=== PATIENT | male | born 1995 | race African-American/Black ===

== ENCOUNTER 2019-05-04 22:51 | Emergency (ER) | payer SELFPAY ==
--- NOTE | 2019-05-05 00:21 | ED ---
Laceration/Wound HPI - HPI Summary HPI Summary: 24-year-old male presents with right pinky laceration today. He states he grabbed a wooden pole that was broken to swing at [employer] and ended up cutting his right hand. Is right-handed. His immunizations are up-to-date. Has no medical conditions. No numbness or tingling. Full range of motion of the finger. No foreign body in the wound. He is not actively bleeding. - History of Current Complaint Stated Complaint: CUT HAND OPEN PER PT Time Seen by Provider: 05/04/19 23:54 Pain Intensity: 6 - Allergy/Home Medications Allergies/Adverse Reactions: Allergies Allergy/AdvReac Type Severity Reaction Status Date / Time cefuroxime [From Ceftin] Allergy Rash Verified 05/05/19 00:17 Home Medications: Home Medications NK [No Home Medications Reported] 05/05/19 [History Confirmed 05/05/19] PMH/Surg Hx/FS Hx/Imm Hx Endocrine/Hematology History: Denies: Hx Anticoagulant Therapy Respiratory History: Denies: Hx Asthma - Immunization History Date of Tetanus Vaccine: 02/2018 Infectious Disease History: No Infectious Disease History: Denies: Traveled Outside the [place] in Last 30 Days - Family History Known Family History: Positive: Non-Contributory - Social History Alcohol Use: Occasionally Substance Use Type: Reports: None Smoking Status (MU): Never Smoked Tobacco Review of Systems Negative: Fever Negative: Chest Pain Negative: Shortness Of Breath Positive: Other - right pinky laceration All Other Systems Reviewed And Are Negative: Yes Physical Exam Triage Information Reviewed: Yes Vital Signs On Initial Exam: Initial Vitals Temp Pulse Resp BP Pulse Ox 98.6 F 70 16 138/77 97 05/04/19 23:00 05/04/19 23:00 05/04/19 23:00 05/04/19 23:00 05/04/19 23:00 Vital Signs Reviewed: Yes Appearance: Positive: Well-Appearing Skin: Positive: Warm, Dry, Other - 1cm superficial on palmar aspect of MCP of right pinky Head/Face: Positive: Normal Head/Face Inspection Eyes: Positive: Normal, Conjunctiva Clear ENT: Positive: Pharynx normal Respiratory/Lung Sounds: Positive: Clear to Auscultation, Breath Sounds Present Cardiovascular: Positive: Normal, RRR Musculoskeletal: Positive: Strength/ROM Intact - right pinky, Other - capillary refill<2 secs Neurological: Positive: Normal Psychiatric: Positive: Normal Procedures - Laceration/Wound Repair 1 Location: Other - right pinky Description: Irregular Length, Depth and Shape: 1cm superficial on palmar aspect of MCP of right pinky Irrigated w/ Saline (ccs): 500 Closure: Skin Adhesive, SteriStrips Sterile Dressing Applied?: No - telfa and metal finger splint Diagnostics - Vital Signs Vital Signs Temp Pulse Resp BP Pulse Ox 05/04/19 23:00 98.6 F 70 16 138/77 97 - Laboratory Lab Statement: Any lab studies that have been ordered have been reviewed, and results considered in the medical decision making process. Laceration Repair Course/Dx - Course Course Of Treatment: 24-year-old male presents with right pinky laceration today. He states he grabbed a wooden pole that was broken to swing at [employer] and ended up cutting his right hand. Is right-handed. His immunizations are up -to-date. Has no medical conditions. No numbness or tingling. Full range of motion of the finger. No foreign body in the wound. He is not actively bleeding. On exam has 1cm superficial on palmar aspect of MCP of right pinky. discussed options with patient of glue vs sutures and patient decided on glue. cleaned area and placed glue and Steri-Strips. gave finger splint. told to keep area clean dry. Patient understands agrees the plan. - Differential Dx Differental Diagnoses: Abrasion, Avulsion, Laceration - Clinical Impression Provider Diagnoses: Laceration of right hand Discharge ED - Sign-Out/Discharge Documenting (check all that apply): Patient Departure Patient Received Moderate/Deep Sedation with Procedure: No - Discharge Plan Condition: Good Disposition: HOME Patient Education Materials: Skin Adhesive Care (ED) Referrals: No Primary Care Phys,NOPCP [Primary Care Provider] - Additional Instructions: Take Tylenol or ibuprofen for pain as needed every 6 hours Keep dry for 24 hours Glue will fall off on own Avoid scrubbing area keep splint on area and change bandage once a day for next week Return to ED if develop any signs of infection or any new or worsening symptoms - Billing Disposition and Condition Condition: GOOD Disposition: Home
[2019-05-05 00:45] VITALS: BP 137/75
== END 2019-05-05 00:43 | disposition home or self-care (01) ==
LOC: ED 22:51
DX: S61.216A Laceration without foreign body of right little finger without damage to nail, initial encounter (principal); W45.8XXA Other foreign body or object entering through skin, initial encounter; Y92.9 Unspecified place or not applicable; Z88.1 Allergy status to other antibiotic agents
CPT/HCPCS: 99282